=== PATIENT | male | born 1950 | race Caucasian/White ===

== ENCOUNTER → 2017-06-13 | Outpatient (CLI) | payer MEDICARE, OTHER | END | disposition home or self-care (01) | LOC: GMAJ 16:51 | PROVIDERS: ATTEND Family Medicine | DX: R06.00 Dyspnea, unspecified (principal) ==

== ENCOUNTER → 2017-08-08 | Outpatient (CLI) | payer MEDICARE, OTHER | END | disposition home or self-care (01) | LOC: LAB.O 13:54 | PROVIDERS: ATTEND Psychiatry & Neurology Neurology | DX: M45.0 Ankylosing spondylitis of multiple sites in spine (principal); I67.9 Cerebrovascular disease, unspecified; K50.90 Crohn's disease, unspecified, without complications; F90.9 Attention-deficit hyperactivity disorder, unspecified type; G60.3 Idiopathic progressive neuropathy; M35.1 Other overlap syndromes; M33.90 Dermatopolymyositis, unspecified, organ involvement unspecified; E11.9 Type 2 diabetes mellitus without complications; B18.2 Chronic viral hepatitis C ==

== ENCOUNTER → 2018-02-14 | Outpatient (CLI) | payer MEDICARE, OTHER ==
--- NOTE | 2018-02-14 13:21 | RAD ---
EXAM DESCRIPTION: Hand,Left 3 Views CLINICAL HISTORY: 67 yearsMale, PAIN IN LEFT HAND COMPARISON: None. IMPRESSION: 3 views of the left hand demonstrate no evidence of acute fracture, dislocation, or destructive osseous lesion. Severe changes of osteoarthritis in the first carpometacarpal joint. More moderate degenerative changes in the radiocarpal, STT, and interphalangeal joints. No focal soft tissue swelling. Electronically signed by: Neo Trammell MD 02/14/2018 1:20 PM CDT
--- NOTE | 2018-02-14 13:23 | RAD ---
EXAM DESCRIPTION: Hand,Right 3 Views CLINICAL HISTORY: PAIN IN RIGHT HAND COMPARISON: None IMPRESSION: 3 views of the right hand show no evidence of acute fracture, focal bone destruction, or joint dislocation. [id number] narrowing of the interphalangeal joints with joint line osteophytes seen throughout the 5 digits consistent with mild to moderate osteoarthritic changes most prominent involving the DIP joints of the second through fifth digits and PIP joint of the fifth digit. Electronically signed by: Haroon French MD 02/14/2018 1:21 PM CDT
== END ==
LOC: RAD 08:45
PROVIDERS: ATTEND Orthopaedic Surgery
DX: M79.641 Pain in right hand (principal); M79.642 Pain in left hand

== ENCOUNTER → 2018-04-10 | Outpatient (CLI) | payer MEDICARE, OTHER | LOC: RESP 13:04 | PROVIDERS: ATTEND Orthopaedic Surgery | DX: Z01.818 Encounter for other preprocedural examination (principal) ==

== ENCOUNTER 2018-04-18 05:36 | Day surgery (SDC) | payer MEDICARE, OTHER ==
[2018-04-18] MEDS ORDERED: SODIUM CHL 0.9% 100ML MINI-BAG 100 ML IVPB ONE (05:59)
[2018-04-18] MEDS ORDERED: LACTATED RINGERS 1,000 ML ONE (05:59)
[2018-04-18] MEDS ORDERED: ceFAZolin SODIUM 1 GM VIAL ONE (05:59)
[2018-04-18] MEDS ORDERED: LACTATED RINGERS 1,000 ML BAG IV ONE (06:20)
[2018-04-18] MEDS ORDERED: MIDAZOLAM INJ 2 MG/2 ML VIAL ONE (06:45)
[2018-04-18] MEDS ORDERED: BUPIVACAINE 0.25% INJ 30 ML VIAL INJ ONE (06:45)
[2018-04-18] MEDS ORDERED: fentaNYL CITRATE INJ 50 MCG/ML AMP ONE (06:45)
[2018-04-18] MEDS ORDERED: LIDOCAINE 1% 10 ML VIAL INJ ONE ×2 (06:46→10:00)
[2018-04-18] MEDS: VANCOMYCIN HCL INJ 1,000 MG VIAL IVPB ONE ×2 (07:27→07:32)
[2018-04-18] MEDS: ceFAZolin SODIUM 1 GM VIAL ONE ×2 (07:27→07:32)
[2018-04-18] MEDS ORDERED: HYDROcodone 5MG/APAP 325MG 1 EA TAB ONE (08:23)
[2018-04-18 09:40] VITALS: BP 118/71; TEMP 96; O2SAT 100
[2018-04-18] MEDS ORDERED: PROPOFOL 200 MG/20 ML VIAL IV ONE (10:00)
--- NOTE | 2018-04-21 08:42 | OP ---
DATE OF PROCEDURE: 04/18/18 PREOPERATIVE DIAGNOSIS: 1. Carpal tunnel syndrome. POSTOPERATIVE DIAGNOSIS: 1. Carpal tunnel syndrome. PROCEDURE: 1. Carpal tunnel release. SURGEON: Gamaliel Yu MD. CERAMIC PRODUCTS SALES ENGINEER: Roberto Ahmadi CST, -C. ANESTHESIA: Local with sedation. COMPLICATIONS: None. FINDINGS: 1. Advanced then atrophy. 2. Narrowing of the median nerve across the carpal tunnel. 3. Thickened transverse carpal ligament. INDICATION: Mr. Conley has a long history of both pain and numbness in the distribution of the median nerve. He has had EMG confirmation of carpal tunnel syndrome. Because of the advanced nature of the condition as well as failure of conservative measures, he has requested operative intervention. After discussing the risks, benefits and alternatives to that, the patient has given informed consent for carpal tunnel release. PROCEDURE: The patient was brought to the Operating Room and placed in the supine position. Sedation was administered and local anesthetic was injected into the operative area under sterile conditions. After the injection of anesthetic, the arm was sterilely prepped and draped. A longitudinal incision was made directly overlying the transverse carpal ligament and blunt dissection was carried down to the ligament. The transverse carpal ligament was sharply transected along its length and a [place] elevator was used to ensure complete release of the ligament. Once release had been confirmed, the wound was thoroughly irrigated and the wound was closed with Nylon suture. A sterile dressing was placed and the patient was taken to the Day Surgery Unit. POSTOPERATIVE PLAN: The patient has been encouraged to do range of motion of the digits and will followup with us in approximately three days. #[id number] [facility]
== END 2018-04-18 09:37 | disposition home or self-care (01) ==
LOC: AMB 05:36
PROVIDERS: ATTEND Orthopaedic Surgery
DX: G56.02 Carpal tunnel syndrome, left upper limb (principal); I10 Essential (primary) hypertension; K76.0 Fatty (change of) liver, not elsewhere classified; Z79.899 Other long term (current) drug therapy
CPT/HCPCS: 01810; 64721; J0690; J2250; J3010; J3370; J3490; J7050; J7120

== ENCOUNTER → 2019-02-10 | Outpatient (CLI) | payer MEDICARE, OTHER | LOC: GMAL 10:32 | PROVIDERS: ATTEND Family Medicine | DX: Z12.5 Encounter for screening for malignant neoplasm of prostate (principal); I10 Essential (primary) hypertension; R73.09 Other abnormal glucose ==

== ENCOUNTER → 2019-02-20 | Outpatient (CLI) | payer MEDICARE, OTHER ==
--- NOTE | 2019-02-20 13:00 | MRI ---
EXAM DESCRIPTION: Lumbar Spine w/o Contrast CLINICAL HISTORY: RADICULOPATHY COMPARISON: None. TECHNIQUE: Multiplanar, multisequence MRI of the lumbar spine was performed without contrast. FINDINGS: Lumbar vertebral body heights are maintained. Heterogeneous decreased T1 and T2 signal throughout the osseous structures of the spine and sacrum. Mild heterogeneous signal on STIR weighted images. Mild area of increased T2 and STIR signal and decreased T1 signal on the right aspect of the T11 vertebral body measuring 17 mm. Conus medullaris terminates at T12-L1. Visualized intra-abdominal retroperitoneal structures show no acute findings. Mild anterior disc bulging marginal endplate osteophytes throughout the lower thoracic to lumbar spine. L1-2 Mild posterior disc space narrowing. Mild facet arthrosis. No spinal canal stenosis. Mild bilateral foraminal encroachment. L2-3 Disc desiccation and mild posterior disc space narrowing. Mild facet arthrosis. No spinal canal stenosis. At least mild right greater than left foraminal encroachment. L3-4 Disc desiccation and [id number] posterior disc space narrowing. Moderate facet hypertrophic and degenerative changes with ligamentum flavum thickening and posterior epidural lipomatosis results in mild spinal canal stenosis. The thecal sac measures 7 mm AP. Moderate bilateral foraminal encroachment. L4-5 Disc desiccation and mild disc space narrowing. Moderate to severe bilateral facet hypertrophic and degenerative changes including ligamentum flavum thickening contributes to mild bilateral lateral recess encroachment with at least moderate bilateral foraminal encroachment. L5-S1 Disc desiccation and mild posterior disc space narrowing. 2 to 3 mm anterolisthesis of L5 on S1 with central annular tear and 2 to 3 mm uncovering of the disc. Severe bilateral facet hypertrophic and degenerative changes including ligamentum flavum thickening. Mild bilateral lateral recess encroachment with mild to moderate bilateral foraminal encroachment. IMPRESSION: [id number] disc degenerative changes and moderate to severe facet arthropathy of the lumbar spine. At least mild spinal canal stenosis at L3-4. Multilevel mild to moderate foraminal encroachment as described level by level above. Abnormal marrow signal could represent red marrow regeneration which can be seen in patients with chronic illness or anemia. Consider metastatic disease or multiple myeloma given mild areas of increased STIR signal mainly in the posterior elements at L3 and L4 and involving the right T11 vertebral body. Electronically signed by: Haroon French MD 02/20/2019 12:58 PM CDT
--- NOTE | 2019-02-20 13:58 | MRI ---
EXAM DESCRIPTION: Cervical Spine CLINICAL HISTORY: RADICULOPATHY COMPARISON: CT July 16, 2013 TECHNIQUE: Multiplanar MRI of the cervical spine was performed without contrast. FINDINGS: Cervical vertebral body heights are maintained. Straightening of the normal cervical lordosis heterogeneous decreased signal on T1 and T2-weighted sequences throughout the marrow of the osseous structures. Mild STIR signal is seen in the T2 vertebral body. Congenital narrowing of the spinal canal and neural foramen secondary to shortened pedicles. Craniocervical junction is maintained. Normal basilar flow void. Increased T2 signal in the spinal cord to the left and right of midline measuring 2 mm AP over a craniocaudal length of 1.2 cm is seen at C4-5 disc space level mild increased T2 signal in the spinal cord to the left and right of midline measuring 2 mm focally just below the C5-6 disc base level. Desiccation of the disc spaces throughout the cervical spine. Large flowing hypertrophic marginal endplate osteophytes from C3 through T1 disc diffuse idiopathic skeletal hyperostosis. C1-2 and craniocervical junction Moderate degenerative changes between the anterior arch of C1 and the odontoid. Mild posterior ligamentum flavum thickening. Mild spinal canal stenosis. Mid sagittal AP diameter of the thecal sac is 7 mm. C2-3 Severe left and mild right facet hypertrophic and degenerative changes. Severe left foraminal encroachment. C3-4 Moderate left greater than right facet hypertrophic and degenerative changes. Mild spinal canal stenosis with less than 2 mm ventral ridging disc osteophyte complex and mild posterior ligamentum flavum thickening. Severe left and moderate right foraminal encroachment. C4-5 Increased T2 signal in the posterior annulus centrally with central disc osteophyte complex measuring 2.5 mm AP by 8 mm transverse contacts and contours the ventral surface of the spinal cord decreasing CSF signal from around the spinal cord. Mid sagittal AP diameter of the thecal sac measures 7 mm consistent with mild spinal canal stenosis. Uncal spurring left greater than right and mild bilateral facet arthrosis with severe left foraminal encroachment. C5-6 Mild disc space narrowing. A 2 to 3 mm broad-based ventral ridging disc osteophyte complex obliterating CSF signal from around the spinal cord measuring 4 mm AP centrally. Flattening and contouring of the ventral surface of the spinal cord asymmetric towards the left with mild bilateral facet arthrosis. Moderate bilateral foraminal encroachment. C6-7 Less than 2 mm broad-based ventral ridging disc osteophyte complex asymmetric towards the left narrows the anterior posterior subarachnoid space resulting in moderate spinal canal stenosis. Mid sagittal AP diameter of the thecal sac is 5 mm. Uncal spurring is seen with at least mild bilateral foraminal encroachment. C7-T1 Mild left greater than right facet hypertrophic and degenerative changes with mild bilateral foraminal encroachment. IMPRESSION: Congenital narrowing of the spinal canal and neural foramen secondary to shortened pedicles. Moderate to severe spondylitic changes of the spine are superimposed. Multifactorial moderate spinal canal stenosis and cord compression at C5-6. Cord signal abnormality C5-6 suggests cord edema or contusion versus myelomalacic changes. Abnormal more fluid signal in the spinal cord at C4-5 most likely represents myelomalacic changes rather than cord edema. At least mild spinal canal stenosis from at C4-5 with moderate spinal canal stenosis at C6-7. Mild cord compression at C6-7. Multilevel foraminal encroachment as described level by level above most significant from C3 through C6. Marrow signal changes could represent red marrow regeneration seen in patients with chronic illness or anemia. Marrow infiltrating process such as metastatic disease or myeloma is a consideration given the areas of mild increased STIR signal most prominent at T2. Electronically signed by: Haroon French MD 02/20/2019 1:56 PM CDT
== END ==
LOC: MRI 09:00
PROVIDERS: ATTEND Family Medicine
DX: M47.22 Other spondylosis with radiculopathy, cervical region (principal); M48.02 Spinal stenosis, cervical region; M47.26 Other spondylosis with radiculopathy, lumbar region; M51.16 Intervertebral disc disorders with radiculopathy, lumbar region; M48.062 Spinal stenosis, lumbar region with neurogenic claudication

== ENCOUNTER 2019-04-09 05:47 | Day surgery (SDC) | payer MEDICARE, OTHER ==
[2019-04-09] MEDS ORDERED: LACTATED RINGERS 1,000 ML ONE (06:59)
[2019-04-09] MEDS ORDERED: PROPOFOL 200 MG/20 ML VIAL IV ONE (07:00)
[2019-04-09] MEDS ORDERED: LIDOCAINE 1% 10 ML VIAL INJ ONE (07:00)
[2019-04-09] MEDS ORDERED: MIDAZOLAM INJ 2 MG/2 ML VIAL ONE (07:56)
[2019-04-09] MEDS ORDERED: ELECTROLYTE-A 1,000 ML IVS ONE (08:35)
--- NOTE | 2019-04-09 09:56 | OP ---
DATE OF PROCEDURE: 04/09/19 INDICATION: Screening colonoscopy. FINDINGS: No polyps seen, normal colon. PROCEDURE: 1. Screening colonoscopy. SURGEON: Anil Lee MD ANESTHESIA: General. HISTORY: This is a 68-year-old man with no history of prior colonoscopy in need of his first screening colonoscopy. He was consented completely for the procedure, understanding all risks and benefits and wished to proceed. PROCEDURE: The patient was brought to the Operative Suite in the lateral position. General anesthesia was induced. Digital rectal exam revealed no evidence of masses, fissure, significant hemorrhoids or blood. The scope was passed without difficulty. There was mid-procedure some looping, so we came all the way back to the sigmoid and then were able to get it passed with some gentle abdominal pressure and placement of the patient on his back. We then were able to get through and get to the cecum. The terminal ileum was not intubated. Upon careful examination on withdrawal, there were no polyps seen with a good exam and a good prep. We suctioned the air during withdrawal as well. He tolerated the procedure and was then taken to Recovery to be discharged. #[id number] [facility]
[2019-04-09 10:02] VITALS: BP 109/60; TEMP 97.8; O2SAT 96
== END 2019-04-09 10:20 | disposition home or self-care (01) ==
LOC: AMB 05:47
PROVIDERS: ATTEND Surgery
DX: Z12.11 Encounter for screening for malignant neoplasm of colon (principal); K59.00 Constipation, unspecified; I10 Essential (primary) hypertension; F41.9 Anxiety disorder, unspecified; F32.9 Major depressive disorder, single episode, unspecified; E78.00 Pure hypercholesterolemia, unspecified; G61.0 Guillain-Barre syndrome; D64.9 Anemia, unspecified; Z79.899 Other long term (current) drug therapy
CPT/HCPCS: 00812; G0121; J2250; J3490; J7120

== ENCOUNTER → 2019-04-23 | Outpatient (CLI) | payer MEDICARE, OTHER ==
--- NOTE | 2019-04-24 10:12 | CT ---
EXAM DESCRIPTION: CTA Runoff: Computed Tomography. CLINICAL HISTORY: PERIPHERAL VASCULAR DISEASE COMPARISON: MRI lumbar spine without contrast February 2019. TECHNIQUE: CT angiography of the abdominal aorta and both lower extremities is performed during rapid bolus administration of IV contrast media. Three-dimensional volume-rendering imaging is reviewed along with 2.5 x 2.5 mm source images, and 2 mm coronal and sagittal reformats. Total Exam DLP: 1387.8 mGy-cm. This exam was performed according to our departmental CT dose-optimization program which includes automated exposure control, adjustment of the mA and/or kV according to patient size and/or use of iterative reconstruction technique; to reduce radiation dose to as low as reasonably achievable (ALARA). FINDINGS: Upper abdominal aorta: Normal caliber. Minimal atherosclerotic calcification at the ostia of the celiac axis with no poststenotic dilation. Mid-abdominal aorta: Minimal calcification in the bilateral proximal smaller renal arteries more on the right. No poststenotic dilation. Distal abdominal aorta: Minimal atherosclerotic calcification below the renal artery origins. No aneurysm or narrowing. ARACELI origin unremarkable. Common iliacs: Unremarkable bilaterally. Internal iliacs: Negative bilaterally. External iliac arteries: Unremarkable. Bilateral TEACHER ADVISOR's: Negative. Bilateral SFAs: Minimal atherosclerotic calcification mostly distal segment with atherosclerotic intimal wall irregularity no aneurysm or stenosis. Bilateral popliteals: Unremarkable. Right trifurcation vessels: Good visualization of proximal EMANI fair visualization of the ankle and poor visualization into the DPA which could also be related to timing of the imaging. Usual termination of the peroneal above the ankle mortise. Good visualization of BACTERIOLOGIST MEDICAL into the plantar foot with minimal atherosclerotic calcification near the medial subtalar joint. Left trifurcation vessels: Good visualization of the proximal EMANI and fair visualization at the ankle mortise. Poor visualization in the dorsalis pedis more likely related to timing of imaging with symmetric appearance to the right EMANI. Usual termination of the left peroneal artery above the ankle mortise. Good visualization of the proximal and distal BACTERIOLOGIST MEDICAL with fair visualization in the medial plantar aspect of the foot. Other: Bilateral arthrosis in the knee joints. Bony loose bodies posterior to the medial right femoral condyles at the level of the intracondylar notch of the femur and medial to the right popliteal artery. Small bilateral fatty inguinal hernias not containing bowel. Possible fatty infiltration of the liver. Prostate gland abutting the base of the urinary bladder and contains calcifications. No free fluid or free air. Diffuse fecal matter moderate amount in the colon. Minimal redundancy of the sigmoid colon. No bowel air-fluid levels. Diffuse spondylosis lumbar spine with arthrosis also in the bilateral SI joints pubic symphysis moderate arthrosis bilateral hip joints more left than right with subchondral radiolucency femoral head. IMPRESSION: 1. No significant atherosclerotic occlusive disease in the abdominal aorta or bilateral lower extremity arterial systems to the level of the trifurcation vessels. Decreased contrast in the bilateral dorsalis pedis arteries may be related to timing of imaging of the contrast more than atherosclerotic disease. Consider correlation with bilateral lower extremity arterial Doppler evaluation. 2. Arthrosis in the pelvis, bilateral hips, and bilateral knees. Diffuse spondylosis in the spine. Possible steatosis of the liver. Electronically signed by: Roberto Shah MD 04/24/2019 10:11 AM CDT
== END ==
LOC: CT 09:24
PROVIDERS: ATTEND Psychiatry & Neurology Neurology
DX: I73.9 Peripheral vascular disease, unspecified (principal); M47.897 Other spondylosis, lumbosacral region; M12.89 Other specific arthropathies, not elsewhere classified, multiple sites

== ENCOUNTER → 2020-06-07 | Outpatient (CLI) | payer MEDICARE, OTHER ==
--- NOTE | 2020-06-08 10:58 | CT ---
Study: CT cervical spine. Indication: SPONDYLOSIS WIATH MYELOPATHY Technique: Axial CT images were acquired through the cervical spine without intravenous contrast. Coronal and sagittal reformats performed. This exam was performed according to our departmental dose-optimization program, which includes automated exposure control, adjustment of the mA and/or kV according to patient size and/or use of iterative reconstruction technique. Comparison: MRI October 06, 2019 Findings: Vertebral body height maintained. Straightening cervical spine. Pedicles congenitally short throughout. No acute fracture identified. Mild dextro curvature cervical spine. C1-C2: Advanced osteoarthritic changes about the dens and anterior arch of C1. No high-grade spinal canal narrowing. C2-C3: Mild disc space height loss. Severe left and moderate facet arthrosis. Prominent left and moderate right uncovertebral hypertrophy. Severe left and mild right neural foraminal narrowing. C3-C4: Prominent anterior osteophytes. Mild disc space height loss. 3 mm disc osteophyte complex. Severe left and moderate right facet arthrosis. Moderate bilateral uncovertebral hypertrophy. Severe left and moderate right neural foraminal narrowing. Moderate spinal canal narrowing. C4-C5: Prominent bridging anterior osteophytes which are fused. Fusion across the posterior disc space as well. Osteophytic spurring across the disc producing moderate spinal canal narrowing. Severe left and moderate right facet arthrosis. Moderate bilateral uncovertebral hypertrophy. Severe left and moderate right neural foraminal narrowing. C5-C6: Prominent anterior spurring but without fusion. Air tracking along the pseudarthrosis. Mild disc space height loss. 4 mm disc bulge with severe spinal canal narrowing. Moderate bilateral facet arthrosis and uncovertebral hypertrophy moderate bilateral neural foraminal narrowing C6-C7: Prominent hypertrophic fusion changes anteriorly. 3 mm disc bulge with moderate spinal canal narrowing. Mild bilateral facet arthrosis. Moderate bilateral uncovertebral hypertrophy. Moderate bilateral neural foraminal narrowing. C7-T1: Mild disc space height loss. Anterior bridging osteophytes. Mild bilateral neural foraminal narrowing and facet arthrosis. No spinal canal narrowing. Atherosclerosis Impression: Pronounced multilevel cervical disc disease accentuated by congenitally short cervical pedicles. See above for level by level details. Electronically signed by: Charlie Fischer MD 06/08/2020 10:57 AM [facility]
--- NOTE | 2020-06-08 11:14 | RAD ---
EXAM DESCRIPTION: Cervical Spine, 2-3 Views CLINICAL HISTORY: SPONDYLOSIS WITH MYELOPATHY COMPARISON: Cervical spine magnetic resonance imaging dated 20 February 2019 TECHNIQUE: AP/lateral FINDINGS: The cervical vertebral bodies are in good AP alignment. The exam reveals blocky anterior bridging osteophyte formation from C3 through C7. It remains unchanged from the previous exam. Diffuse facet joint arthritis is seen. No soft tissue swelling is noted. A congenitally small canal is observed. IMPRESSION: Persistent degenerative changes are observed. There is been no interval change from the previous exam. Electronically signed by: Chaitanya Verduzco MD 06/08/2020 11:13 AM [facility]
--- NOTE | 2020-06-08 11:15 | RAD ---
EXAM DESCRIPTION: Cervical Spine,Flex/Ext CLINICAL HISTORY: SPONDYLOSIS AND MYELOPATHY COMPARISON: None. TECHNIQUE: Flexion and extension views of the cervical spine FINDINGS: Diffuse bridging osteophyte formation is observed. A small canal is noted. No abnormal motion is observed on flexion-extension. Motion is very limited. IMPRESSION: No abnormal motion is observed on flexion and extension. Electronically signed by: Chaitanya Verduzco MD 06/08/2020 11:14 AM [facility]
== END ==
LOC: CT 11:09
PROVIDERS: ATTEND Neurological Surgery
DX: M50.00 Cervical disc disorder with myelopathy, unspecified cervical region (principal); M47.12 Other spondylosis with myelopathy, cervical region; Q76.49 Other congenital malformations of spine, not associated with scoliosis

== ENCOUNTER → 2020-06-28 | Outpatient (CLI) | payer MEDICARE, OTHER ==
--- NOTE | 2020-06-28 15:45 | MRI ---
Study: MRI of the Right Shoulder. Indication: M25.511 Technique: Multiplanar, multi sequence MRI of the right shoulder was obtained without intravenous contrast. Comparison: None. Findings: Severe hypertrophic AC joint osteoarthritis with small joint effusion. Type II acromion. Full-thickness, fullwidth supraspinatus tendon tear with involvement of the anterior half infraspinatus tendon. Torn tendon fibers retracted to the glenohumeral joint line. Fixed tearing superior two thirds subscapularis tendon insertion. Mild to moderate atrophy and grade 1 fatty infiltration rotator cuff musculature. Long head biceps tendinosis and split tearing with high-grade attenuation and partial-thickness tearing intracapsular portion. Circumferential labral truncation and degeneration. Mild grade 4 chondrosis superior margin femoral heads and central glenoid with additional areas of grade 2 and 3 chondral loss of the remainder the joint. Small osteophytes. Small joint effusion. No acute fracture. Impression: Full-thickness, fullwidth supraspinatus tendon tearing with involvement of the anterior half infraspinatus tendon. High-grade articular tearing superior two thirds of the subscapularis tendon insertion approaching full-thickness. Mild to moderate atrophy and grade 1 fatty infiltration rotator cuff musculature. High-grade intracapsular long head biceps tendon tearing and attenuation. Circumferential labral truncation and degeneration. Moderate glenohumeral joint osteoarthritis with a small joint effusion. Severe AC joint osteoarthritis. Electronically signed by: Charlie Fischer MD 06/28/2020 3:43 PM [facility]
== END ==
LOC: MRI 10:47
PROVIDERS: ATTEND Psychiatry & Neurology Neurology
DX: M75.101 Unspecified rotator cuff tear or rupture of right shoulder, not specified as traumatic (principal); M62.511 Muscle wasting and atrophy, not elsewhere classified, right shoulder; S46.111A Strain of muscle, fascia and tendon of long head of biceps, right arm, initial encounter; M19.011 Primary osteoarthritis, right shoulder; S43.431A Superior glenoid labrum lesion of right shoulder, initial encounter